=== PATIENT | female | born 1960 | race Caucasian/White ===

== ENCOUNTER 2018-10-18 19:32 | Emergency (ER) | payer OTHER ==
[2018-10-18] MEDS: traMADol 50 MG TAB PO (20:35)
== END 2018-10-18 21:02 | disposition home or self-care (01) ==
LOC: FTE 19:32
DX: B02.9 Zoster without complications (principal); I10 Essential (primary) hypertension; J45.909 Unspecified asthma, uncomplicated
CPT/HCPCS: 99283; Z7502